=== PATIENT | male | born 1980 | race Two or more races ===

== ENCOUNTER → 2017-04-17 | Outpatient (CLI) | payer OTHER ==
--- NOTE | ~2017-04-17 | ST ---
Unit #: [id number] #: [id number] Patient: NAYELY ROMERO [id number] [address] [place], [place] [address] [id number] O MR#: [id number] NAME: NAYELY ROMERO : 1980 SEX: M STUDY DATE/TIME: 04/17/2017 UNIT: CE ROOM: STUDY DESCRIPTION: Attending Physician: Renay Vasques Referring Physician: Renay Vasques Primary Care Physician: Ruby Peacock M.D. CARDIOLOGY REPORT EXAM Exercise stress test. FINDINGS Baseline electrocardiogram shows normal sinus rhythm and T-wave abnormality in lead I, aVL. Patient exercised for a total duration of 7 minutes and 22 seconds, achieving a heart rate of 158 per minute which is submaximal predicted for his age and the test was stopped because of shortness of breath and leg discomfort. T-wave abnormality seen in lead I and aVL showed T waves are now upright. There was no ST segment shift. No arrhythmias are precipitated. Blood pressure response was normal with rise in the systolic pressure to 180 and fall in the diastolic pressure to 80 mm. IMPRESSION Submaximal exercise stress test shows: 1. No exercise-induced angina. 2. No exercise-induced arrhythmia. 3. Low probability for significant ischemic heart disease. 4. Poor exercise tolerance. Dictated by... Darryl Landry/hank TD: 04/17/2017 15:06 JOB #: [id number] CARDIOLOGY REPORT Page 1 of 1 X Stuart Rich MD CARDIOLOGY REPORT
== END | disposition home or self-care (01) ==
LOC: CEKG 07:43
DX: R07.9 Chest pain, unspecified (principal)
CPT/HCPCS: 93017

== ENCOUNTER → 2017-06-12 | Outpatient (CLI) | payer OTHER ==
--- NOTE | ~2017-06-12 | US6 ---
[facility] A Service of [facility] & [facility] RADIOLOGY TEXT RESULTS PATIENT: NAYELY ROMERO LOCATION: [facility] : 80 UNIT #: [id number] AGE: [address]: SHANNON REINOSO SEX: M ORDER DR: [id number] [facility] [address] [place], [place] [address] [id number] O MR#: [id number] Acc #: [id number] NAME: NAYELY ROMERO : 1980 SEX: M STUDY DATE/TIME: 06/12/2017 11:16 UNIT: [facility] ROOM: STUDY DESCRIPTION: US Abdominal Limited Attending Physician: Renay Vasques Referring Physician: Renay Vasques Ordering Physician: Ruby Peacock M.D. Primary Care Physician: Ruby Peacock M.D. MEDICAL IMAGING REPORT This report is preliminary unless electronic signature is present EXAM Right upper quadrant ultrasound; 06/12/2017. HISTORY Abnormally elevated liver enzymes at doctor's appointment 3 months ago. FINDINGS The liver demonstrates an increase in echotexture with attenuation of the ultrasound beam characteristic of fatty infiltration. Focal fatty sparing is seen adjacent to the gallbladder. The gallbladder is normal with no evidence of cholelithiasis, wall thickening or pericholecystic fluid. The common duct measures 4 mm. The pancreas and right kidney are normal. IMPRESSION Fatty infiltration of the liver. Otherwise, negative right upper quadrant ultrasound. Dictated by... Lazarus Hendrix M.D. THIS IS AN ELECTRONICALLY VERIFIED REPORT Lazarus Hendrix M.D. at 06/13/2017 7:33 AM LEV/suellen TD: 06/12/2017 17:26 JOB #: [id number] MEDICAL IMAGING REPORT Page 1 of 1 COPY
== END | disposition home or self-care (01) ==
LOC: CGUS 09:59
DX: R74.8 Abnormal levels of other serum enzymes (principal); K76.0 Fatty (change of) liver, not elsewhere classified
CPT/HCPCS: 76705